=== PATIENT | male | born 1965 | race Two or more races ===

== ENCOUNTER 2017-07-04 21:18 | Emergency (ER) | payer MEDICAID ==
[~2017-07-04] VITALS: Ht 185.4 cm; Wt 96.2 kg
[2017-07-04 21:24] VITALS: BP 142/113
== END 2017-07-05 00:40 | disposition left against medical advice (07) ==
LOC: ER 21:20
DX: L98.8 Other specified disorders of the skin and subcutaneous tissue (principal); Z53.21 Procedure and treatment not carried out due to patient leaving prior to being seen by health care provider

== ENCOUNTER 2017-07-12 00:20 | Emergency (ER) | payer MEDICAID ==
[~2017-07-12] VITALS: Ht 185.4 cm; Wt 90.6 kg
[2017-07-12] MEDS ORDERED: PRED20TA PO (00:31)
[2017-07-12] MEDS ORDERED: CLIN300C53 PO (00:31)
[2017-07-12 00:35] VITALS: BP 121/78
== END 2017-07-12 00:36 | disposition home or self-care (01) ==
LOC: ER 00:20
DX: L03.114 Cellulitis of left upper limb (principal); L03.113 Cellulitis of right upper limb; J02.0 Streptococcal pharyngitis; Z98.890 Other specified postprocedural states
CPT/HCPCS: 99283

== ENCOUNTER 2017-07-17 02:20 | Emergency (ER) | payer MEDICAID ==
[~2017-07-17] VITALS: Ht 185.4 cm; Wt 92.8 kg
[~2017-07-17 02:20] MED LIST: CLIN300C53 PO; PRED20TA PO
[2017-07-17] MEDS ORDERED: FLUT16SP2 BOTHNARES (02:30)
[2017-07-17 02:36] VITALS: BP 131/101
== END 2017-07-17 02:39 | disposition home or self-care (01) ==
LOC: ER 02:21
DX: J30.0 Vasomotor rhinitis (principal); F15.10 Other stimulant abuse, uncomplicated; J45.909 Unspecified asthma, uncomplicated; M19.90 Unspecified osteoarthritis, unspecified site; Z79.899 Other long term (current) drug therapy
CPT/HCPCS: 99283

== ENCOUNTER 2017-07-20 03:44 | Emergency (ER) | payer MEDICAID ==
[~2017-07-20] VITALS: Ht 185.4 cm; Wt 104.5 kg
[~2017-07-20 03:44] MED LIST changes: +FLUT16SP2 BOTHNARES
[2017-07-20 04:02] VITALS: BP 128/64
== END 2017-07-20 04:04 | disposition home or self-care (01) ==
LOC: ER 03:44
DX: M79.642 Pain in left hand (principal); M79.641 Pain in right hand; J45.909 Unspecified asthma, uncomplicated; F15.10 Other stimulant abuse, uncomplicated; M19.90 Unspecified osteoarthritis, unspecified site
CPT/HCPCS: 99281

== ENCOUNTER 2017-07-27 00:05 | Emergency (ER) | payer MEDICAID ==
[~2017-07-27] VITALS: Ht 185.4 cm; Wt 95.1 kg
[~2017-07-27 00:05] MED LIST changes: -CLIN300C53 PO
[2017-07-27 00:56] VITALS: BP 119/76
== END 2017-07-27 00:59 | disposition home or self-care (01) ==
LOC: ER 00:06
DX: R21 Rash and other nonspecific skin eruption (principal)
CPT/HCPCS: 99281

== ENCOUNTER 2018-03-13 05:17 | Emergency (ER) | payer MEDICAID ==
[~2018-03-13] VITALS: Ht 185.4 cm; Wt 86.3 kg
[~2018-03-13 05:17] MED LIST changes: -PRED20TA PO
[2018-03-13] MEDS ORDERED: normal saline 1000ML IV soln IV ONE (05:35)
[2018-03-13 06:28] LABS: BASOPHILS % (AUTO) 0 % (0-1); EOSINOPHILS # (AUTO) 0.2 X10'3 (0-0.9); EOSINOPHILS % (AUTO) 2.1 % (0-6); HEMATOCRIT 40.6 % (42.0-52.0); HEMOGLOBIN 14.1 g/dl (14.0-17.9); LYMPHOCYTES # (AUTO) 1.6 X10'3 (1.1-4.8); LYMPHOCYTES % (AUTO) 15.4 % (21-51); MEAN CORPUSCULAR HEMOGLOBIN 30.2 PG (27.0-31.0); MEAN CORPUSCULAR HGB CONC 34.9 % (33.0-36.5); MEAN CORPUSCULAR VOLUME 86.6 FL (78-98); MONOCYTES # (AUTO) 0.4 X10'3 (0-0.9); MONOCYTES % (AUTO) 4.1 % (2-12); NEUTROPHILS # (AUTO) 8.3 X10'3 (1.8-7.7); NEUTROPHILS % (AUTO) 78.4 % (42-75); PLATELET COUNT 323 X10'3 (140-440); RED BLOOD COUNT 4.68 X10'6 (4.70-6.10); RED CELL DISTRIBUTION WIDTH 13.8 % (11.5-14.5); WHITE BLOOD COUNT 10.6 X10'3 (4.5-11.0)
[2018-03-13 06:29] LABS: INR 1.1 INR; PARTIAL THROMBOPLASTIN TIME 29 SECONDS (22-32); PROTHROMBIN TIME 10.9 SECONDS (9.0-12.0)
[2018-03-13 06:33] LABS: ALANINE AMINOTRANSFERASE 18 U/L (12-78); ALBUMIN 3.5 G/DL (3.4-5.0); ALBUMIN/GLOBULIN RATIO 0.9 (1.1-1.5); ALKALINE PHOSPHATASE 61 IU/L (46-116); ANION GAP 7 (8-16); ASPARTATE AMINO TRANSFERASE 16 U/L (10-37); BILIRUBIN,TOTAL 0.5 MG/DL (0.1-1.0); BLOOD UREA NITROGEN 12 MG/DL (7-18); BUN/CREATININE RATIO 15.8 (5.4-32.0); CALCIUM 8.9 MG/DL (8.5-10.1); CHLORIDE 105 MMOL/L (99-107); CREATININE 0.76 MG/DL (0.60-1.10); GLUCOSE 88 MG/DL (70-104); POTASSIUM 3.5 MMOL/L (3.5-5.1); SODIUM 139 MMOL/L (135-145); TOTAL CARBON DIOXIDE 26.6 MMOL/L (24-32); TOTAL PROTEIN 7.2 G/DL (6.4-8.2); eGFR > 90 ML/MIN
[2018-03-13] MEDS ORDERED: BENZ-16 PO (07:10)
[2018-03-13] MEDS ORDERED: AZI25OT PO (07:10)
[2018-03-13 07:27] VITALS: BP 122/69
== END 2018-03-13 07:29 | disposition home or self-care (01) ==
LOC: ER 05:18
DX: K92.2 Gastrointestinal hemorrhage, unspecified (principal); J40 Bronchitis, not specified as acute or chronic; M19.90 Unspecified osteoarthritis, unspecified site; G89.29 Other chronic pain; F17.200 Nicotine dependence, unspecified, uncomplicated; F15.90 Other stimulant use, unspecified, uncomplicated; Z79.2 Long term (current) use of antibiotics; Z79.899 Other long term (current) drug therapy
CPT/HCPCS: 36415; 71046; 80053; 85025; 85610; 85730; 86885; 86900; 86901; 99285; J7030

== ENCOUNTER 2018-06-17 12:30 | Emergency (ER) | payer MEDICAID ==
[2018-06-18] MEDS ORDERED: CLIN150C2 PO (17:15)
[2018-06-18] MEDS ORDERED: METH4TAB3 PO (17:16)
== END 2018-06-17 14:21 | disposition left against medical advice (07) ==
LOC: ER 12:30
DX: Z53.21 Procedure and treatment not carried out due to patient leaving prior to being seen by health care provider (principal)

== ENCOUNTER 2018-06-18 16:01 | Emergency (ER) | payer MEDICAID ==
[~2018-06-18] VITALS: Ht 185.4 cm; Wt 86.7 kg
[2018-06-18 16:36] VITALS: BP 120/88
[2018-06-18] MEDS ORDERED: CLIN150C2 PO (17:15)
[2018-06-18] MEDS ORDERED: METH4TAB3 PO (17:16)
== END 2018-06-18 17:26 | disposition home or self-care (01) ==
LOC: ER 16:02
DX: L02.415 Cutaneous abscess of right lower limb (principal); J45.909 Unspecified asthma, uncomplicated; M19.90 Unspecified osteoarthritis, unspecified site; G89.29 Other chronic pain; F15.90 Other stimulant use, unspecified, uncomplicated; Z79.899 Other long term (current) drug therapy
CPT/HCPCS: 99283

== ENCOUNTER 2018-06-20 22:02 | Emergency (ER) | payer MEDICAID ==
[~2018-06-20] VITALS: Ht 185.4 cm; Wt 71.0 kg
[~2018-06-20 22:02] MED LIST changes: +CLIN150C2 PO; +METH4TAB3 PO
[2018-06-20 22:04] VITALS: BP 141/82
[2018-06-20] MEDS ORDERED: SULF1TAB48 PO (23:29)
[2018-06-20] MEDS ORDERED: sulfamethoxazole/trimethoprim DS (800/160mg) tablet PO ONE (23:30)
== END 2018-06-20 23:45 | disposition home or self-care (01) ==
LOC: ER 22:03
DX: L02.416 Cutaneous abscess of left lower limb (principal); F17.200 Nicotine dependence, unspecified, uncomplicated; Z76.0 Encounter for issue of repeat prescription; J45.909 Unspecified asthma, uncomplicated; M19.90 Unspecified osteoarthritis, unspecified site; G89.29 Other chronic pain; F15.90 Other stimulant use, unspecified, uncomplicated; Z79.899 Other long term (current) drug therapy
CPT/HCPCS: 99283

== ENCOUNTER 2018-11-14 07:10 | Emergency (ER) | payer MEDICAID ==
[~2018-11-14] VITALS: Ht 185.4 cm; Wt 82.7 kg
[~2018-11-14 07:10] MED LIST changes: -CLIN150C2 PO
[2018-11-14] MEDS ORDERED: LIDOcaine 1% w/epiNEPHrine 1:200,000 30ml vial IM ONE (08:20)
[2018-11-14] MEDS ORDERED: CEPH-572 PO (08:27)
[2018-11-14] MEDS ORDERED: MUPI22OI30 TOP (08:27)
[2018-11-14] MEDS ORDERED: SULF1TAB49 PO (08:27)
[2018-11-14 09:05] VITALS: BP 125/75
== END 2018-11-14 09:07 | disposition home or self-care (01) ==
LOC: ER 07:11
DX: S30.812A Abrasion of penis, initial encounter (principal); L02.01 Cutaneous abscess of face; L02.31 Cutaneous abscess of buttock; J45.909 Unspecified asthma, uncomplicated; M19.90 Unspecified osteoarthritis, unspecified site; G89.29 Other chronic pain; F15.90 Other stimulant use, unspecified, uncomplicated; Z86.14 Personal history of Methicillin resistant Staphylococcus aureus infection; Z79.899 Other long term (current) drug therapy; X58.XXXA Exposure to other specified factors, initial encounter; Y93.89 Activity, other specified; Y92.89 Other specified places as the place of occurrence of the external cause; Y99.8 Other external cause status
CPT/HCPCS: 10061; 87070; 87077; 87186; 99284; J3490

== ENCOUNTER 2020-07-08 14:43 | Emergency (ER) | payer MEDICAID ==
[~2020-07-08] VITALS: Ht 185.4 cm; Wt 97.0 kg
[~2020-07-08 14:43] MED LIST changes: +IBUP-1986 PO
[2020-07-08] MEDS ORDERED: normal saline 1000ML IV soln IVB ONE (15:45)
[2020-07-08 16:24] LABS: BASOPHILS % (AUTO) 0.7 % (0-1); EOSINOPHILS # (AUTO) 0.3 X10'3 (0-0.9); EOSINOPHILS % (AUTO) 4.1 % (0-6); HEMATOCRIT 37.4 % (42.0-52.0); HEMOGLOBIN 12.5 g/dl (14.0-17.9); LYMPHOCYTES # (AUTO) 1.5 X10'3 (1.1-4.8); LYMPHOCYTES % (AUTO) 21.7 % (21-51); MEAN CORPUSCULAR HGB CONC 33.5 g/dL (33.0-36.5); MEAN CORPUSCULAR VOLUME 86.6 FL (78-98); MEAN PLATELET VOLUME 9.2 FL (7.4-10.4); MONOCYTES # (AUTO) 0.6 X10'3 (0-0.9); MONOCYTES % (AUTO) 9.2 % (2-12); NEUTROPHILS # (AUTO) 4.3 X10'3 (1.8-7.7); NEUTROPHILS % (AUTO) 64.3 % (42-75); PLATELET COUNT 185 X10'3 (140-440); RED BLOOD COUNT 4.32 X10'6 (4.70-6.10); RED CELL DISTRIBUTION WIDTH 13.1 % (11.5-14.5); WHITE BLOOD COUNT 6.7 X10'3 (4.5-11.0)
[2020-07-08 16:28] LABS: PARTIAL THROMBOPLASTIN TIME 27 SECONDS (22-32)
[2020-07-08 16:32] LABS: ALANINE AMINOTRANSFERASE 26 U/L (12-78); ALKALINE PHOSPHATASE 75 IU/L (46-116); ANION GAP 8 (8-16); ASPARTATE AMINO TRANSFERASE 7 U/L (10-37); BILIRUBIN,TOTAL 0.6 MG/DL (0.1-1.0); BLOOD UREA NITROGEN 16 MG/DL (7-18); BUN/CREATININE RATIO 16.7 (5.4-32.0); CALCIUM 8.2 MG/DL (8.5-10.1); CHLORIDE 109 MMOL/L (99-107); CREATININE 0.96 MG/DL (0.60-1.10); GLUCOSE 129 MG/DL (70-104); POTASSIUM 4.2 MMOL/L (3.5-5.1); SODIUM 141 MMOL/L (135-145); TOTAL CARBON DIOXIDE 23.9 MMOL/L (24-32); eGFR 82 ML/MIN
[2020-07-08] MEDS ORDERED: furosemide 10 MG/1 ML 10ml inj IV ONE (16:35)
[2020-07-08 16:40] LABS: LIPASE 82 U/L (73-393)
[2020-07-08] MEDS ORDERED: CefTRIAXone 2gm/D5W 50ml BAG 50 ML IV ONE (16:45)
--- NOTE | 2020-07-08 16:46 | NUR ---
Noted pt occ has desaturations to 80%, on RA, then rebounds quickly to the 90's. EQUIPMENT SERVICE ENGINEER at bedside, witnessed event. Will not give NS bolus as EQUIPMENT SERVICE ENGINEER feels this is a fluid overload situation
[2020-07-08] MEDS ORDERED: FURO40TA4 PO (17:17)
[2020-07-08] MEDS ORDERED: LEVO500T89 PO (17:17)
[2020-07-08 17:52] VITALS: BP 135/65
[2020-07-08 18:01] LABS: CLARITY,URINE CLEAR (Clear); COLOR,URINE YELLOW (Yellow); GLUCOSE, URINE NEGATIVE (Neg); KETONES,URINE NEGATIVE (Neg); LEUKOCYTE ESTERASE ,URINE NEGATIVE (Neg); NITRITES, URINE NEGATIVE (Neg); OCCULT BLOOD,URINE NEGATIVE (Neg); PROTEIN,URINE NEGATIVE (Neg); UROBILINOGEN,URINE 0.2 E.U/dL (0.2-1.0)
[2020-07-08 18:03] LABS: UA COLLECTION TYPE CLN CATCH MIDSTREAM
== END 2020-07-08 17:56 | disposition left against medical advice (07) ==
LOC: ER 14:43
DX: I50.9 Heart failure, unspecified (principal); Z20.828 Contact with and (suspected) exposure to other viral communicable diseases; J18.9 Pneumonia, unspecified organism; J45.909 Unspecified asthma, uncomplicated; M19.90 Unspecified osteoarthritis, unspecified site; G89.29 Other chronic pain; F15.90 Other stimulant use, unspecified, uncomplicated; Z86.14 Personal history of Methicillin resistant Staphylococcus aureus infection; Z79.2 Long term (current) use of antibiotics; Z79.899 Other long term (current) drug therapy
CPT/HCPCS: 36415; 71045; 80053; 81003; 83690; 83880; 84145; 84484; 85025; 85610; 85730; 93005; 96365; 96375; 99285; J0696; J1940

== ENCOUNTER 2020-07-21 07:16 | Emergency (ER) | payer MEDICAID ==
[~2020-07-21] VITALS: Ht 185.4 cm; Wt 85.9 kg
[~2020-07-21 07:16] MED LIST changes: +FURO40TA4 PO
--- NOTE | 2020-07-21 08:35 | NUR ---
attempted iv x3, unsuccessful
[2020-07-21 09:42] LABS: BASOPHILS % (AUTO) 0.3 % (0-1); EOSINOPHILS # (AUTO) 0.1 X10'3 (0-0.9); EOSINOPHILS % (AUTO) 1.4 % (0-6); HEMATOCRIT 39.3 % (42.0-52.0); LYMPHOCYTES # (AUTO) 0.9 X10'3 (1.1-4.8); LYMPHOCYTES % (AUTO) 14.4 % (21-51); MEAN CORPUSCULAR HEMOGLOBIN 27.8 PG (27.0-31.0); MEAN CORPUSCULAR VOLUME 84.3 FL (78-98); MONOCYTES # (AUTO) 0.6 X10'3 (0-0.9); MONOCYTES % (AUTO) 9.2 % (2-12); NEUTROPHILS # (AUTO) 4.7 X10'3 (1.8-7.7); NEUTROPHILS % (AUTO) 74.7 % (42-75); PLATELET COUNT 152 X10'3 (140-440); RED BLOOD COUNT 4.66 X10'6 (4.70-6.10); RED CELL DISTRIBUTION WIDTH 13.6 % (11.5-14.5); WHITE BLOOD COUNT 6.3 X10'3 (4.5-11.0)
[2020-07-21 09:48] LABS: ALANINE AMINOTRANSFERASE 31 U/L (12-78); ALBUMIN 2.9 G/DL (3.4-5.0); ALBUMIN/GLOBULIN RATIO 0.9 (1.1-1.5); ALKALINE PHOSPHATASE 78 IU/L (46-116); ANION GAP 10 (8-16); ASPARTATE AMINO TRANSFERASE 39 U/L (10-37); BILIRUBIN,TOTAL 0.5 MG/DL (0.1-1.0); BLOOD UREA NITROGEN 17 MG/DL (7-18); CALCIUM 7.9 MG/DL (8.5-10.1); CHLORIDE 105 MMOL/L (99-107); CREATININE 1.13 MG/DL (0.60-1.10); GLUCOSE 122 MG/DL (70-104); POTASSIUM 3.9 MMOL/L (3.5-5.1); SODIUM 139 MMOL/L (135-145); TOTAL CARBON DIOXIDE 24.1 MMOL/L (24-32); TOTAL PROTEIN 6.3 G/DL (6.4-8.2); eGFR 68 ML/MIN
[2020-07-21] MEDS ORDERED: normal saline 1000ML IV soln IV ONE (10:30)
[2020-07-21 10:48] LABS: ETHANOL < 0.010 GM/DL (0.0-0.010)
[2020-07-21 10:58] LABS: D-DIMER 0.95 MG/L FEU (0-0.50)
--- NOTE | 2020-07-21 11:22 | NUR ---
PATIENT'S GIRLFRIEND, ANGÉLICA, CALLED FOR CONDITION REPORT. CONTACT NUMBER FOR ANGÉLICA IS [phone].
[2020-07-21] MEDS ORDERED: iohexol 350MG/ML 100ml bottle IV ONE (11:25)
[2020-07-21] MEDS ORDERED: AZIT250T PO (12:52)
[2020-07-21 13:00] VITALS: BP 121/75
== END 2020-07-21 13:35 | disposition home or self-care (01) ==
LOC: ER 07:16
DX: U07.1 COVID-19 (principal); R05 Cough; Z87.01 Personal history of pneumonia (recurrent); I50.9 Heart failure, unspecified; J45.909 Unspecified asthma, uncomplicated; M19.90 Unspecified osteoarthritis, unspecified site; G89.29 Other chronic pain; F15.90 Other stimulant use, unspecified, uncomplicated; Z86.14 Personal history of Methicillin resistant Staphylococcus aureus infection; Z79.2 Long term (current) use of antibiotics; Z79.899 Other long term (current) drug therapy
CPT/HCPCS: 36415; 71045; 71275; 80053; 80320; 83880; 84484; 85025; 85379; 87635; 93005; 96360; 96361; 99285; C9803; J7030; Q9967